=== PATIENT | female | born 1960 | race Caucasian/White ===

== ENCOUNTER 2017-01-02 22:29 | Emergency (ER) | payer BC, MEDICAID ==
[2017-01-02] MEDS ORDERED: INSULIN REGULAR HUMAN 100 UNIT/1 ML 10 ML MDV SUBQ STA (23:41)
[2017-01-02] MEDS ORDERED: SODIUM CHLORIDE 0.9% 1,000 ML IV ONE (23:42)
[2017-01-03] MEDS ORDERED: INSULIN REGULAR HUMAN 100 UNIT/1 ML 10 ML MDV ONE (00:04)
[2017-01-03] MEDS ORDERED: PHENAZOPYRIDINE 100 MG TABLETS (Prepack) PO PRN (00:56)
[2017-01-03] MEDS ORDERED: PHENAZOPYRIDINE 100 MG TABLETS (Prepack) PO ONE (01:00)
== END 2017-01-03 01:05 | disposition home or self-care (01) ==
DX: R30.0 Dysuria (principal); E11.65 Type 2 diabetes mellitus with hyperglycemia; Z79.84 Long term (current) use of oral hypoglycemic drugs; T38.3X6A Underdosing of insulin and oral hypoglycemic [antidiabetic] drugs, initial encounter; T50.2X6A Underdosing of carbonic-anhydrase inhibitors, benzothiadiazides and other diuretics, initial encounter; Z91.128 Patient's intentional underdosing of medication regimen for other reason; Y92.009 Unspecified place in unspecified non-institutional (private) residence as the place of occurrence of the external cause; I10 Essential (primary) hypertension; E03.9 Hypothyroidism, unspecified
CPT/HCPCS: 36415; 80053; 81003; 83690; 85025; 99283; 99284; J1815

== ENCOUNTER 2017-06-15 22:24 | Emergency (ER) | payer BC, MEDICAID ==
--- NOTE | 2017-06-15 23:30 | ED Physician Documentation ---
PD HPI BACK INJURY - Stated complaint Stated Complaint: BACK PX - History obtained from History obtained from: Patient - History of Present Illness Location: Right, Lower Type of injury: Twist (she had been doing bending and lifting and some overhead stacking at work ([employer]) and had pain in lumbar area develop and worsening. Now with spasms and worse pain.) Where injury occurred: Work Timing - onset: How many weeks ago (2) Timing - duration: Weeks (2) Timing - details: Gradual onset, Still present (worse today at work), Waxing and waning Quality: Pain, Spasm Improved by: Rest Worsened by: Moving Associated symptoms: No: Fever, Weakness, Numbness, Incontinent of urine, Hematuria Contributing factors: Work related Recently seen: Not recently seen Review of Systems Constitutional: denies: Fever, Chills Cardiac: denies: Chest pain / pressure GI: denies: Abdominal Pain, Vomiting, Diarrhea : denies: Dysuria, Hematuria, Discharge Skin: denies: Rash, Lesions Neurologic: reports: Numbness (at toes and bottoms of feet from diabetes, has not noted new areas.). 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 Other Past Medical History: uterine fibroids - Past Surgical History Past Surgical History: No - Present Medications Home Medications: Ambulatory Orders Medication Instructions Recorded Confirmed Levothyroxine [Synthroid] 137 mcg PO DAILY 05/12/14 01/02/17 Metformin HCl 1,000 mg PO BID 05/12/14 01/02/17 Lisinopril/Hydrochlorothiazide 1 tab PO DAILY 02/09/15 01/02/17 [Lisinopril-Hctz 10-12.5 mg Tab] Phenazopyridine HCl [Pyridium] 200 mg PO TID PRN #10 tablet 01/03/17 HYDROcod/ACETAM 5/325 [Fries 5/325] 1 tab PO Q6H PRN #15 tablet 06/16/17 Methocarbamol [Robaxin] 500 mg PO Q6H PRN #25 tablet 06/16/17 Naproxen [Naprosyn] 500 mg PO BID #20 tablet 06/16/17 - Allergies Allergies/Adverse Reactions: Allergies Allergy/AdvReac Type Severity Reaction Status Date / Time Penicillins Allergy Intermediate Hives Verified 06/15/17 22:35 - Social History Does the pt smoke?: No Smoking Status: Never smoker Does the pt drink ETOH?: No Does the pt have substance abuse?: No - Immunizations Immunizations are current?: Yes - POLST Patient has POLST: No PD ED PE NORMAL - Vitals Vital signs reviewed: Yes - General General: Alert and oriented X 3, No acute distress, Well developed/nourished - Cardiac Cardiac: RRR, No murmur - Respiratory Respiratory: Clear bilaterally - Abdomen Abdomen: Soft, Non tender - Back Back: No CVA TTP, No spinal TTP (tender right lower back at lower lumbar level right side. No rash nor sores. No midline tenderness. ) - Derm Derm: Normal color, Warm and dry, No rash - Extremities Extremities: Normal ROM s pain, No edema, No calf tenderness / cord - Neuro Neuro: Alert and oriented X 3, No motor deficit, No sensory deficit (slight less sensory to touch peripherally at all toes and bottoms of feet c/w neuropathy rather than dermatomal. ), Normal speech, Other (2+DTRs at knees) Results - Vitals Vitals: Vital Signs - 24 hr 06/15/17 06/16/17 22:31 01:05 Temperature 36.2 C L 36.5 C Heart Rate 77 76 Respiratory 16 16 Rate Blood Pressure 130/84 H 128/84 H O2 Saturation 99 97 Oxygen O2 Source Room air - Labs Labs: Laboratory Tests 06/16/17 00:25 Urine Color YELLOW Urine Clarity CLEAR Urine pH 6.0 Ur Specific [place] 1.015 Urine Protein NEGATIVE Urine Glucose (UA) >=1000 H Urine Ketones NEGATIVE Urine Occult Blood NEGATIVE Urine Nitrite NEGATIVE Urine Bilirubin NEGATIVE Urine Urobilinogen 0.2 (NORMAL) Ur Leukocyte Esterase NEGATIVE Ur Microscopic Review NOT INDICATED Urine Culture Comments NOT INDICATED PD MEDICAL DECISION MAKING - ED course Complexity details: reviewed results, considered differential, d/w patient Departure - Departure Disposition: 01 Home, Self Care Clinical Impression: Low back strain Qualifiers: Encounter type: initial encounter Qualified Code(s): S39.012A - Strain of muscle, fascia and tendon of lower back, initial encounter Condition: Stable Record reviewed to determine appropriate education?: Yes Instructions: ED Sprain Strain Lumbar Follow-Up: Winnie Hughes PA-C [Primary Care Provider] - Prescriptions: Naproxen [Naprosyn] 500 mg PO BID #20 tablet HYDROcod/ACETAM 5/325 [Fries 5/325] 1 tab PO Q6H PRN #15 tablet PRN Reason: Pain Methocarbamol [Robaxin] 500 mg PO Q6H PRN #25 tablet PRN Reason: Spasms Comments: This seems like musculoskeletal back pain. Use naproxen or ibuprofen twice daily for the next 7-10 days. Add methocarbamol if needed for muscle stiffness and spasm. Add Tylenol if needed for pain and if inadequate then add hydrocodone. Follow-up with your primary care for potential of physical therapy. He could also seek out chiropractic or massage to help with this as well. Limited lifting bending and overhead reaching for the next 5 or 6 days. Forms: Activity restrictions Discharge Date/Time: 06/16/17 01:14
[2017-06-15] MEDS ORDERED: diazePAM 5 MG TABLET PO STA (23:56)
[2017-06-15] MEDS ORDERED: HYDROcod/ACETAM 5/325 MG TABLET PO STA (23:56)
[2017-06-15] MEDS ORDERED: ACETAMINOPHEN 500 MG TABLET PO STA (23:56)
[2017-06-16] MEDS ORDERED: diazePAM 5 MG TABLET PO ONE (00:03)
[2017-06-16] MEDS ORDERED: ACETAMINOPHEN 500 MG TABLET PO ONE (00:04)
[2017-06-16] MEDS ORDERED: HYDROcod/ACETAM 5/325 MG TABLET ONE (00:04)
[2017-06-16 00:28] LABS: BILIRUBIN,URINE NEGATIVE (NEGATIVE)
[2017-06-16 00:30] LABS: UA CHARGE (STRIP ONLY) YES; UR CULTURE IF IND NOT INDICATED
[2017-06-16] MEDS ORDERED: HYDROcod/ACET 5/325 Prepack 6 PO ONE ×2 (00:51→00:57)
[2017-06-16 01:07] VITALS: BP 128/84
== END 2017-06-16 01:14 | disposition home or self-care (01) ==
LOC: ED 22:24
DX: S39.012A Strain of muscle, fascia and tendon of lower back, initial encounter (principal); X50.0XXA Overexertion from strenuous movement or load, initial encounter; Y93.89 Activity, other specified; Y92.512 Supermarket, store or market as the place of occurrence of the external cause; Y99.0 Civilian activity done for income or pay; I10 Essential (primary) hypertension; E11.8 Type 2 diabetes mellitus with unspecified complications; Z79.84 Long term (current) use of oral hypoglycemic drugs; E03.9 Hypothyroidism, unspecified
CPT/HCPCS: 81003; 99283; A9270; 81001; 87086

== ENCOUNTER 2019-12-07 19:19 | Emergency (ER) | payer BC, MEDICAID ==
[2019-12-07] MEDS ORDERED: DEXAMETHASONE 10 MG/ML VIAL PO STA (20:12)
[2019-12-07] MEDS ORDERED: CHERRY SYRUP 10 ML UDC PO ONE (20:12)
[2019-12-07] MEDS ORDERED: SODIUM CHLORIDE 0.9% 1,000 ML IV ONE (20:12)
[2019-12-07] MEDS ORDERED: ASPIRIN 325 MG TABLET PO STA (20:12)
--- NOTE | 2019-12-07 20:14 | ED Physician Documentation ---
History of Present Illness - Stated complaint Stated Complaint: SORE THROAT, NOSE BLEEDS - Chief complaint Chief Complaint: General - History obtained from History obtained from: Patient (The patient is a 59-year-old female who comes in with multiple complaints. The patient's #1 complaint is chest pain and left arm discomfort patient reports that she was concerned that she could be having a heart attack she denies any history of [place] or stroke she also complains of a sore throat she also reports that she has not taken her Synthroid in 2 weeks and is requesting a refill on her Synthroid.She denies any history of pulmonary embolism or DVT.) Review of Systems Constitutional: reports: Reviewed and negative Eyes: reports: Reviewed and negative Ears: reports: Reviewed and negative Nose: reports: Reviewed and negative Throat: reports: Sore throat Cardiac: reports: Chest pain / pressure Respiratory: reports: Reviewed and negative GI: reports: Reviewed and negative : reports: Reviewed and negative Skin: reports: Reviewed and negative Musculoskeletal: reports: Reviewed and negative Neurologic: reports: Reviewed and negative Psychiatric: reports: Reviewed and negative Endocrine: reports: Reviewed and negative Immunocompromised: reports: Reviewed and negative PD PAST MEDICAL HISTORY - Past Medical History Cardiovascular: Hypertension Endocrine/Autoimmune: Type 2 diabetes, HyPOthyroidism GI: Cholelithiasis 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 - Past Surgical History Past Surgical History: No - Present Medications Home Medications: Ambulatory Orders Medication Instructions Recorded Confirmed Levothyroxine [Synthroid] 137 mcg PO DAILY 05/12/14 01/02/17 Metformin HCl 1,000 mg PO BID 05/12/14 01/02/17 Lisinopril/Hydrochlorothiazide 1 tab PO DAILY 02/09/15 01/02/17 [Lisinopril-Hctz 10-12.5 mg Tab] Phenazopyridine HCl [Pyridium] 200 mg PO TID PRN #10 tablet 01/03/17 HYDROcod/ACETAM 5/325 [[place] 5/325] 1 tab PO Q6H PRN #15 tablet 06/16/17 Naproxen [Naprosyn] 500 mg PO BID #20 tablet 06/16/17 methocarbamoL [Robaxin] 500 mg PO Q6H PRN #25 tablet 06/16/17 - Allergies Allergies/Adverse Reactions: Allergies Allergy/AdvReac Type Severity Reaction Status Date / Time Penicillins Allergy Intermediate Hives Verified 12/07/19 19:28 - Social History Does the pt smoke?: No Smoking Status: Never smoker Does the pt drink ETOH?: No Does the pt have substance abuse?: No - Immunizations Immunizations are current?: Yes - POLST Patient has POLST: No PD ED PE NORMAL - Vitals Vital signs reviewed: Yes - General General: Alert and oriented X 3, No acute distress, Well developed/nourished - HEENT HEENT: Atraumatic, PERRL, Pharynx benign - Neck Neck: Supple, no meningeal sign - Cardiac Cardiac: RRR, No murmur, Strong equal pulses - Respiratory Respiratory: No respiratory distress, Clear bilaterally - Abdomen Abdomen: Normal bowel sounds, Soft, Non tender, Non distended - Rectal Rectal: Deferred - Back Back: No CVA TTP, No spinal TTP - Derm Derm: Normal color, Warm and dry, No rash - Extremities Extremities: No deformity, No tenderness to palpate, Normal ROM s pain, No calf tenderness / cord - Neuro Neuro: Alert and oriented X 3, 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, No motor deficit, No sensory deficit, Normal speech - Psych Psych: Normal mood, Normal affect Results - Vitals Vitals: Vital Signs - 24 hr 12/07/19 12/07/19 19:20 23:42 Temperature 36.9 C Heart Rate 84 74 Respiratory 18 16 Rate Blood Pressure 146/86 H 121/72 O2 Saturation 98 96 Oxygen O2 Source Room air - EKG (time done) 20:20 Rate: Other (no stemi) 22:20 Rate: Other (no stemi) - Labs Labs: Laboratory Tests 12/07/19 12/07/19 12/07/19 20:28 21:40 21:40 WBC 7.8 RBC 3.99 L Hgb 12.2 Hct 36.5 L MCV 91.5 MCH 30.6 MCHC 33.4 RDW 13.2 Plt Count 188 MPV 9.8 Neut # (Auto) 4.8 Lymph # (Auto) 2.2 [place] # (Auto) 0.6 Eos # (Auto) 0.1 Baso # (Auto) 0.0 Absolute Nucleated RBC 0.00 Nucleated RBC % 0.0 PT 13.0 H INR 1.2 APTT 31.6 Sodium Potassium Chloride Carbon Dioxide Anion Gap BUN Creatinine Estimated GFR (MDRD) Glucose Calcium Total Bilirubin AST ALT Alkaline Phosphatase Total Creatine Kinase Troponin I High Sens B-Natriuretic Peptide Total Protein Albumin Globulin Albumin/Globulin Ratio Lipase TSH Group A Strep Rapid Negative 12/07/19 12/07/19 12/07/19 21:40 21:40 21:40 WBC RBC Hgb Hct MCV MCH MCHC RDW Plt Count MPV Neut # (Auto) Lymph # (Auto) [place] # (Auto) Eos # (Auto) Baso # (Auto) Absolute Nucleated RBC Nucleated RBC % PT INR APTT Sodium 134 L Potassium 3.7 Chloride 98 L Carbon Dioxide 27 Anion Gap 9.0 BUN 19 Creatinine 0.6 Estimated GFR (MDRD) 103 Glucose 394 H Calcium 8.2 L Total Bilirubin 0.8 AST 18 ALT 30 Alkaline Phosphatase 77 Total Creatine Kinase 99 Troponin I High Sens 9.0 B-Natriuretic Peptide 22 Total Protein 6.5 L Albumin 3.3 Globulin 3.2 Albumin/Globulin Ratio 1.0 Lipase 33 TSH Group A Strep Rapid 12/07/19 12/07/19 21:40 22:56 WBC RBC Hgb Hct MCV MCH MCHC RDW Plt Count MPV Neut # (Auto) Lymph # (Auto) [place] # (Auto) Eos # (Auto) Baso # (Auto) Absolute Nucleated RBC Nucleated RBC % PT INR APTT Sodium Potassium Chloride Carbon Dioxide Anion Gap BUN Creatinine Estimated GFR (MDRD) Glucose Calcium Total Bilirubin AST ALT Alkaline Phosphatase Total Creatine Kinase Troponin I High Sens 3.4 B-Natriuretic Peptide Total Protein Albumin Globulin Albumin/Globulin Ratio Lipase TSH 67.97 H Group A Strep Rapid PD MEDICAL DECISION MAKING - ED course Complexity details: considered differential (ACS, atypical chest pain, pharyngitis, hyperglycemia, hypothyroidism.), other (heart score 3. unable to PERC patient out but hx and pe not concerning for PE. neg ekg x 2, neg trop x 2.) Departure - Departure Disposition: Home, Self Care Clinical Impression: Chest pain Qualifiers: Chest pain type: unspecified Qualified Code(s): R07.9 - Chest pain, unspecified Pharyngitis Qualifiers: Pharyngitis/tonsillitis etiology: unspecified etiology Qualified Code(s): J02.9 - Acute pharyngitis, unspecified Condition: Good Instructions: ED Chest Pain NonCardiac, ED Pharyngitis Viral Follow-Up: YOUR, DOCTOR [Other] - Tomorrow Discharge Date/Time: 12/07/19 23:42
[2019-12-07 20:42] LABS: RAPID STREP SCREEN Negative (Negative)
--- NOTE | 2019-12-07 21:04 | XRAY Report ---
Reason: chest pain Procedure Date: 12/07/2019 Accession Number: [id number] / [id number] Procedure: XR - Chest 2 View X-Ray CPT Code: 49928 Final Report FULL RESULT: EXAM: CHEST RADIOGRAPHY EXAM DATE: 12/07/2019 08:51 PM. CLINICAL HISTORY: Chest pain. COMPARISON: None. TECHNIQUE: 2 views. FINDINGS: Lungs/Pleura: No dense consolidation. No large effusion or pneumothorax. No pulmonary edema. Mediastinum: Heart and mediastinal contours are unremarkable. Other: None. IMPRESSION: No acute radiographic pulmonary abnormalities. [facility]
[2019-12-07 21:50] LABS: BASOPHILS % (AUTO) 0.3 %; EOSINOPHILS # (AUTO) 0.1 10^3/uL (0.0-0.7); EOSINOPHILS % (AUTO) 1.3 %; HGB - HEMOGLOBIN 12.2 g/dL (12.0-16.0); LYMPHOCYTES # (AUTO) 2.2 10^3/uL (1.5-3.5); LYMPHOCYTES % (AUTO) 28.2 %; MEAN CORPUSCULAR HEMOGLOBIN 30.6 pg (27.0-31.0); MEAN CORPUSCULAR HGB CONC 33.4 g/dL (32.0-36.0); MEAN CORPUSCULAR VOLUME 91.5 fL (81.0-99.0); MEAN PLATELET VOLUME 9.8 fL (7.9-10.8); MONOCYTES # (AUTO) 0.6 10^3/uL (0.0-1.0); MONOCYTES % (AUTO) 7.6 %; NEUTROPHILS # (AUTO) 4.8 10^3/uL (1.5-6.6); PLT - PLATELET COUNT 188 10^3/uL (130-450); RED BLOOD COUNT 3.99 10^6/uL (4.20-5.40); RED CELL DISTRIBUTION WIDTH 13.2 % (12.0-15.0); WHITE BLOOD COUNT 7.8 x10^3/uL (4.8-10.8)
[2019-12-07 22:03] LABS: ALBUMIN 3.3 g/dL (3.2-5.5); BILIRUBIN,TOTAL 0.8 mg/dL (0.2-1.0); CALCIUM 8.2 mg/dL (8.5-10.3); CREATININE 0.6 mg/dL (0.4-1.0); TOTAL PROTEIN 6.5 g/dL (6.7-8.2)
[2019-12-07 22:11] LABS: INR 1.2 (0.8-1.2)
[2019-12-07 22:18] LABS: PARTIAL THROMBOPLASTIN TIME 31.6 secs (24.9-33.3)
[2019-12-07 23:43] VITALS: BP 121/72
== END 2019-12-07 23:42 | disposition home or self-care (01) ==
LOC: ED 19:19
DX: R07.9 Chest pain, unspecified (principal); J02.9 Acute pharyngitis, unspecified; E03.9 Hypothyroidism, unspecified; E11.9 Type 2 diabetes mellitus without complications; I10 Essential (primary) hypertension; K80.20 Calculus of gallbladder without cholecystitis without obstruction; Z79.84 Long term (current) use of oral hypoglycemic drugs
CPT/HCPCS: 36415; 71046; 82550; 83690; 83880; 84484; 85610; 85730; 87070; 87077; 87430; 93005; 96360; 99283; 99284; A9270; 80053; 84443; 85025

== ENCOUNTER 2019-12-19 17:46 | Outpatient (CLI) | payer BC | END 2019-12-19 17:47 | disposition home or self-care (01) | LOC: COV 17:46 | PROVIDERS: ATTEND Family Medicine | DX: R50.9 Fever, unspecified (principal) ==

== ENCOUNTER 2021-01-30 08:00 | Outpatient (CLI) | payer BC | END 2021-01-30 23:59 | disposition home or self-care (01) | LOC: LAB.N 08:00 | PROVIDERS: ATTEND Family Medicine | DX: R05 Cough (principal); Z20.822 Contact with and (suspected) exposure to COVID-19 ==

== ENCOUNTER 2021-07-09 08:00 | Outpatient (CLI) | payer BC | END 2021-07-09 23:59 | disposition home or self-care (01) | LOC: LAB 08:00 | PROVIDERS: ATTEND Family Medicine | DX: R39.9 Unspecified symptoms and signs involving the genitourinary system (principal) | CPT/HCPCS: 87086; 87181 ==

== ENCOUNTER 2021-08-12 07:00 | Outpatient (CLI) | payer BC | END 2021-08-12 23:59 | disposition home or self-care (01) | LOC: LAB.N 07:00 | PROVIDERS: ATTEND Family Medicine | DX: R05.3 Chronic cough (principal); Z20.822 Contact with and (suspected) exposure to COVID-19 ==

== ENCOUNTER 2023-08-03 13:54 | Outpatient (CLI) | payer BC ==
[2023-08-03 17:34] LABS: BASOPHILS % (AUTO) 0.6 %; EOSINOPHILS # (AUTO) 0.1 10^3/uL (0.0-0.7); EOSINOPHILS % (AUTO) 2.9 %; HCT - HEMATOCRIT 38.4 % (37.0-47.0); LYMPHOCYTES # (AUTO) 1.7 10^3/uL (1.5-3.5); LYMPHOCYTES % (AUTO) 34.6 %; MEAN CORPUSCULAR HEMOGLOBIN 29.5 pg (27.0-31.0); MEAN CORPUSCULAR HGB CONC 31.3 g/dL (32.0-36.0); MEAN CORPUSCULAR VOLUME 94.3 fL (81.0-99.0); MONOCYTES # (AUTO) 0.4 10^3/uL (0.0-1.0); MONOCYTES % (AUTO) 7.9 %; NEUTROPHILS # (AUTO) 2.6 10^3/uL (1.5-6.6); NEUTROPHILS % (AUTO) 53.6 %; PLT - PLATELET COUNT 177 10^3/uL (130-450); RED BLOOD COUNT 4.07 10^6/uL (4.20-5.40); RED CELL DISTRIBUTION WIDTH 13.6 % (12.0-15.0); WHITE BLOOD COUNT 4.8 x10^3/uL (4.8-10.8)
[2023-08-03 18:19] LABS: ALBUMIN 4.2 g/dL (3.2-5.5); ALBUMIN/GLOBULIN RATIO 1.2 (1.0-2.2); ALKALINE PHOSPHATASE 84 IU/L (42-121); ALT ALANINE AMINOTRANSFERASE 25 IU/L (10-60); AST ASPARTATE AMINOTRANSFERASE 16 IU/L (10-42); BILIRUBIN,TOTAL 0.9 mg/dL (0.2-1.0); BUN - BLOOD UREA NITROGEN 17 mg/dL (6-20); CALCIUM 9.3 mg/dL (8.5-10.3); CARBON DIOXIDE - CO2 29 mmol/L (21-32); CHLORIDE 103 mmol/L (101-111); CHOL/HDL RATIO 4.7 (<4.4); CHOLESTEROL 192 mg/dL; CREATININE 0.5 mg/dL (0.6-1.3); GFR - MDRD 125 (>89); GLUCOSE 185 mg/dL (74-104); HDL CHOLESTEROL 41 mg/dL; LDL CHOLESTEROL,CALCULATED 125 mg/dL; POTASSIUM 4.4 mmol/L (3.5-4.5); SODIUM 137 mmol/L (135-145); TOTAL PROTEIN 7.6 g/dL (6.4-8.9); TRIGLYCERIDES 128 mg/dL (48-352); VLDL CHOLESTEROL 26 mg/dL
[2023-08-03 18:52] LABS: MICROALBUM/CREATININE RATIO,UR 24.5 ug/mg (<30.0); MICROALBUMIN,URINE 2.4 mg/dL
[2023-08-03 21:12] LABS: ESTIMATED AVERAGE GLUCOSE 246 mg/dL (70-100); HEMOGLOBIN A1c% 10.2 % (4.27-6.07)
== END 2023-08-03 13:55 | disposition home or self-care (01) ==
LOC: LAB.N 13:54
PROVIDERS: ATTEND Physician Assistant
DX: E11.65 Type 2 diabetes mellitus with hyperglycemia (principal)
CPT/HCPCS: 36415; 80053; 80061; 82043; 82570; 83036; 83721; 85025